=== PATIENT | male | born 1965 | race Two or more races ===

== ENCOUNTER 2021-12-06 09:25 | Emergency (ER) | payer OTHER ==
[~2021-12-06] VITALS: Ht 182.9 cm; Wt 87.5 kg
== END 2021-12-06 13:11 | disposition home or self-care (01) ==
LOC: ER 09:25
DX: S42.251A Displaced fracture of greater tuberosity of right humerus, initial encounter for closed fracture (principal); W19.XXXA Unspecified fall, initial encounter; Y93.9 Activity, unspecified; Y92.9 Unspecified place or not applicable; Y99.9 Unspecified external cause status

== ENCOUNTER 2021-12-17 08:04 | Outpatient (CLI) | payer OTHER | END 2021-12-17 08:11 | disposition home or self-care (01) | LOC: RAD 08:04 | PROVIDERS: ATTEND Orthopaedic Surgery | DX: S42.254A Nondisplaced fracture of greater tuberosity of right humerus, initial encounter for closed fracture (principal) ==